=== PATIENT | female | born 1985 ===

== ENCOUNTER 2024-12-10 06:32 | Outpatient (CLI) | payer SELFPAY ==
--- NOTE | 2024-12-10 06:49 | US_ITS ---
WS: [id number] US transvaginal [id number] HISTORY: Follicle number, size, and endo thickness COMPARISON: None available. Uterus: 8.7 cm x 5.1 cm x 4.5 cm. Normal size anteverted uterus. No fibroid or mass. Endometrium: 0.4 cm. Normal endometrium. Right ovary: 2.2 cm x 1.4 cm x 2.6 cm. Normal size ovary. No identifiable follicles. No solid mass. Normal vascularity. Left ovary: 2.6 cm x 1.5 cm x 2.0 cm. Normal size ovary. No identifiable follicles. No solid mass. Normal vascularity. No free fluid in the cul-de-sac. US/US transvaginal [id number] IMPRESSION: 1. No ovarian follicles identified. 2. Endometrium 0.4 cm.
[2024-12-10 09:31] LABS: Estradiol 7.2 pg/mL; HCG Quantitative < 1.00 mIU/mL; Thyroid Stimulating Hormone 1.27 uIU/mL (0.27-4.20)
== END 2024-12-10 06:33 | disposition home or self-care (01) ==
PROVIDERS: Visit Provider Obstetrics & Gynecology Reproductive Endocrinology
DX: N97.8 Female infertility of other origin (principal); Z31.69 Encounter for other general counseling and advice on procreation
CPT/HCPCS: 36415; 76830; 82670; 84443; 84702

== ENCOUNTER 2024-12-18 06:48 | Outpatient (CLI) | payer SELFPAY ==
--- NOTE | 2024-12-18 06:56 | US_ITS ---
WS: [id number] US transvaginal [id number] HISTORY: endo thickness, follicle count COMPARISON: 12/10/2024 Uterus: 10.9 cm x 5.3 cm x 4.2 cm. Normal size anteverted uterus. No fibroid or mass. Endometrium: 1.1 cm. Increasing endometrial thickness since the prior examination. Endometrium is heterogeneous without significant increased vascularity. Small nabothian cyst. Right ovary: 2.7 cm x 1.6 cm x 2.0 cm. Normal size ovary. 2 follicles identified with the largest measuring 0.9 x 1.1 x 0.5 cm. Left ovary: 2.8 cm x 2.0 cm x 2.0 cm. Normal size ovary. There is a dominant follicle measuring 1.3 x 1.5 x 1.2 cm. There are very tiny additional follicles likely. No free fluid in the cul-de-sac. US/US transvaginal [id number] IMPRESSION: 1. Endometrium at 1.1 cm. Increased in thickness since 12/10/2024 from 0.4 cm. 2. Small bilateral ovarian follicles. Largest follicle LEFT ovary. 3. RIGHT ovary; 2 follicles identified. 4. LEFT ovary: 2 follicles identified with the largest measuring 1.3 x 1.5 x 1 .2 cm.
[2024-12-18 08:47] LABS: Estradiol 281.4 pg/mL
== END 2024-12-18 06:49 | disposition home or self-care (01) ==
PROVIDERS: Visit Provider Obstetrics & Gynecology Reproductive Endocrinology
DX: Z97.8 Presence of other specified devices (principal); Z31.69 Encounter for other general counseling and advice on procreation; N88.8 Other specified noninflammatory disorders of cervix uteri
CPT/HCPCS: 36415; 76830; 82670; 84144

== ENCOUNTER 2024-12-19 08:13 | Outpatient (CLI) | payer SELFPAY | END 2024-12-19 08:14 | disposition home or self-care (01) | PROVIDERS: Visit Provider Obstetrics & Gynecology Reproductive Endocrinology | DX: N97.8 Female infertility of other origin (principal); Z31.69 Encounter for other general counseling and advice on procreation | CPT/HCPCS: 36415; 84144 ==

== ENCOUNTER 2025-01-02 06:50 | Outpatient (CLI) | payer SELFPAY | END 2025-01-02 06:51 | disposition home or self-care (01) | PROVIDERS: Visit Provider Obstetrics & Gynecology Reproductive Endocrinology | DX: Z32.01 Encounter for pregnancy test, result positive (principal) | CPT/HCPCS: 36415; 82670; 84144; 84702 ==

== ENCOUNTER 2025-01-09 07:00 | Outpatient (CLI) | payer SELFPAY ==
[2025-01-09 08:01] LABS: Progesterone 39.82 ng/mL
== END 2025-01-09 07:01 | disposition home or self-care (01) ==
LOC: LAB 07:01
PROVIDERS: Visit Provider Obstetrics & Gynecology Reproductive Endocrinology
DX: Z32.01 Encounter for pregnancy test, result positive (principal)
CPT/HCPCS: 36415; 82670; 84144; 84702

== ENCOUNTER 2025-01-22 07:02 | Outpatient (CLI) | payer SELFPAY ==
--- NOTE | 2025-01-22 07:06 | US_ITS ---
WS: [id number] OB ultrasound, 01/22/2025 Clinical Data: dating Comparison: Pelvic ultrasound, 12/08/2024 Findings: There is a single interuterine . heart rate is 161 beats per minute. There is a yolk sac present. The crown-rump length measured 0.9 cm and the gestational sac 1.20 x 2.76 x 3.35 cm. The estimated gestational age 6w6d is with an MYRA of approximately 09/11/2025. The left ovary measured 2.3 cm x 2.0 cm x 1.8 cm with a central cyst measuring 0.4 x 0.9 x 1.1 cm. The right ovary was not imaged. No free fluid in the cul-de-sac.. US/US OB <=14 wk fetus w transvag Impression: 1. Single interuterine . 2. Estimated gestational age of 6w6d with an MYRA of 09/11/2025. 3. heart rate 161 beats per minute.
== END 2025-01-22 07:03 | disposition home or self-care (01) ==
PROVIDERS: Visit Provider Obstetrics & Gynecology Reproductive Endocrinology
DX: O09.811 Supervision of pregnancy resulting from assisted reproductive technology, first trimester (principal); Z3A.01 Less than 8 weeks gestation of pregnancy; N83.292 Other ovarian cyst, left side; N88.8 Other specified noninflammatory disorders of cervix uteri
CPT/HCPCS: 76801; 76817

== ENCOUNTER 2025-09-01 13:30 | Outpatient (CLI) | payer OTHER, SELFPAY ==
[2025-09-01 13:30] VITALS: BMI 36.8
[2025-09-01 13:41] VITALS: BP 130/77; PULSE 95
[2025-09-01 13:56] VITALS: BP 138/70; PULSE 78
[2025-09-01 14:12] VITALS: BP 138/70; PULSE 78; RESP 20; O2SAT 98
[2025-09-01 14:22] LABS: Hematocrit 39.0 % (36-47); Hemoglobin 12.70 g/dL (11.27-16.99); Mean Corpuscular HGB Conc 32.6 g/dL (30-55); Mean Corpuscular Hemoglobin 30.0 pg (27-33); Mean Corpuscular Volume 92.0 fl (85-98); Nucleated Red Blood Cells % 0 %; Platelet Count 186 10^3/cmm (157-399); Red Blood Count 4.24 10^6/uL (3.85-5.65); White Blood Count 13.79 10^3/uL (3.29-11.43)
[2025-09-01 15:14] LABS: Alanine Aminotransferase 7 U/L (0-33); Albumin Level 3.5 g/dL (3.5-5.2); Alkaline Phosphatase 146 U/L (35-105); Anion Gap 18.0 (5-19); Aspartate Amino Transferase 24 U/L (0-32); Blood Urea Nitrogen 8 mg/dL (6-20); Calcium 9.5 mg/dL (8.5-10.5); Carbon Dioxide 22 mmol/L (22-29); Chloride 101 mmol/L (98-107); Globulin 3.0 g/dL (1.3-4.6); Glucose 106 mg/dL (65-115); Lipase 17 U/L (13-60); Osmolality Calculated 283 mOsm/kg (285-295); Potassium 4.0 mmol/L (3.5-5.1); Sodium 137 mmol/L (136-145); Total Protein 6.5 g/dL (6.6-8.7)
== END 2025-09-01 14:12 | disposition home or self-care (01) ==
LOC: OPOB 13:35 → OBGYN 13:36
PROVIDERS: Visit Provider Family Medicine
DX: O26.899 Other specified pregnancy related conditions, unspecified trimester (principal); Z3A.00 Weeks of gestation of pregnancy not specified; R11.10 Vomiting, unspecified; R52 Pain, unspecified
CPT/HCPCS: 36415; 59025; 80053; 83690; 85025; 99211

== ENCOUNTER 2025-09-01 14:14 | Emergency (ER) | payer OTHER, SELFPAY ==
[2025-09-01 14:22] VITALS: BP 123/86; PULSE 99; RESP 18; TEMP 36.4; O2SAT 99
--- NOTE | 2025-09-01 14:38 | W.ED.ABDPA2 ---
HPI - Abdominal Pain General: Chief Complaint: Abdominal Pain Stated Complaint: sent by andreea Time Seen by Provider: 09/01/25 14:18 History of Present Illness: 39-year-old female who is at 38 weeks gestation confirmed by ultrasound. Her usual physician is Dr. Jimenez. She presented to OB with complaints of abdominal pain. No signs of onset of labor she was evaluated by Dr. Jimenez in the OB department and then diverted to the ED because of her continuing abdominal pain concerning for possible acute cholecystitis. Associated Symptoms: Reports nausea and vomiting; Denies chills, dysuria and fever(s) Related Data Allergies Allergy/AdvReac Type Severity Reaction Status Date / Time morphine Allergy Unknown Verified 09/01/25 14:26 Review of Systems Const: Denies: fever(s) or chills Card: Denies: chest pain Resp: Denies: dyspnea GI: Reports: abdominal pain, nausea and vomiting : Denies: dysuria, urinary frequency or urinary urgency Musc: Denies: neck pain or back pain Skin/Breast: Denies: rash Physical Exam Const: GENERAL APPEARANCE: cooperative ORIENTATION/CONSCIOUSNESS: Yes awake, Yes oriented to person, Yes oriented to place and Yes oriented to time HENMT: COMMON NORMALS: normocephalic, atraumatic and hearing grossly normal bilaterally HEAD & SCALP: normocephalic and atraumatic Resp: COMMON NORMALS: normal respiratory effort, No retractions, No use of accessory muscles and clear to auscultation bilaterally AUSCULTATION: clear to auscultation bilaterally Cardio: COMMON NORMALS: regular rate, regular rhythm and No murmurs present (Cardio) RATE: regular rate RHYTHM: regular rhythm GI: COMMON NORMALS: No hepatosplenomegaly present AUSCULTATION: Yes normoactive bowel sounds PALPATION: Yes Tenderness to palpation present (GI) Details: RUQ, No Guarding due to palpation present (GI) and Yes No hepatosplenomegaly present : COMMON NORMALS: Yes no CVA tenderness BLADDER/KIDNEY EXAM: Yes no CVA tenderness Back/Pelvis: COMMON NORMALS: no CVA tenderness Extremity: COMMON NORMALS: normal to inspection, capillary refill normal, no clubbing, cyanosis or edema, no calf tenderness and no pedal edema Neuro: SENSORIUM/ORIENTATION: Yes oriented to person, Yes oriented to place and Yes oriented to time Skin: COMMON NORMALS: no rashes or lesions noted GENERAL SKIN EXAM: no rashes or lesions noted Course Vital Signs: Vital signs: Vital Signs Temperature 97.5 F L 09/01/25 14:22 Pulse Rate 83 09/01/25 20:51 Respiratory Rate 14 09/01/25 20:41 Blood Pressure 140/76 09/01/25 20:51 Pulse Oximetry 97 09/01/25 20:51 Oxygen Delivery Me thod Room Air 09/01/25 20:45 MDM - Abdominal Pain Medical Decision Making Medical decision making Social determinants: None I reviewed the patient's medical record. I reviewed the patient's current home meds. Alternate historians: Reviewed patient's history with her primary OB Dr. Jimenez Differential diagnosis: Acute cholecystitis versus pyelonephritis versus ureteral impingement versus cystitis Lab Review: Labs reviewed white count 13.7 neutrophils 11.2. Alk phos slightly elevated 146 T. bili and transaminases are normal. Urine done in OB reported as normal Imaging:[] Gallbladder ultrasound shows evidence of common bile duct obstruction. Discussed at length with Dr. Stauffer she favors a stone of the distal common bile duct there is numerous stones within the gallbladder there is dilated intrahepatic and extrahepatic ducts. Assessment of risk Level of risk: High Hospitalization considerations: Hospitalization needed for further evaluation and treatment Reexamination: Pain improved with medications given Assessment and plan: Patient has common bile duct obstruction with acute biliary colic. She is already showing dilation of the common bile ducts while there is not significant change in her labs and anticipates she will have this in relatively short order. Patient given Zosyn. Discussed with Dr. Jimenez he concurs with transfer. At this time he had seen the patient in OB department prior to her coming to the emergency room. Obstetrically he felt there was no significant complications. Discussed at length with Dr. Stauffer as well at this point doing an MRCP will not be adequate as patient has significant dilation of ducts and likely will require ERCP regardless. She is beyond 37 weeks with solid dating. Discussed with OB on-call at [facility] they will accept the patient. Reviewed findings with the patient discussed risks she is agreeable to transfer stable at time of transfer Lab Data Labs/Radiology: Radiology Impressions Gallbladder Ultrasound 09/01/25 14:50 IMPRESSION: 1. Cholelithiasis. Numerous stones in the gallbladder. 2. Dilated intrahepatic and extrahepatic ducts. Favor stone in the distal common bile duct. No stone is identified by ultrasound. Recommend MRCP evaluation. All radiology interpretation(s) finalized by discharge Discharge Plan Discharge Patient Disposition: Transfer to ED Clinical Impression: Choledocholithiasis, Term , Cholelithiasis Condition: Stable Patient Instructions: Abdominal Pain (ED) Print Language: Argentine Coding Level of Care Code ED Floor Coverings Installer for [place] Hendrix
--- NOTE | 2025-09-01 14:50 | US_ITS ---
WS: [id number] RIGHT UPPER QUADRANT ULTRASOUND HISTORY: RUQ abd pain COMPARISON: None available. Liver: 14.5 cm in length. Normal size liver. Central bile duct dilatation. Only mildly dilated biliary radicles. Portal Vein: Normal hepatopetal flow with monophasic waveform. Gallbladder: Normally distended gallbladder with numerous stones. No pericholecystic fluid or gallbladder wall thickening. CBD: 1.2 cm Pancreas: Normal size and echogenicity. Right kidney: 13.2 cm in length. Normal size and echogenicity. No hydronephrosis or mass. Aorta and IVC: Unremarkable abdominal aorta and IVC. No ascites. US/US gall bladder [id number] IMPRESSION: 1. Cholelithiasis. Numerous stones in the gallbladder. 2. Dilated intrahepatic and extrahepatic ducts. Favor stone in the distal comm on bile duct. No stone is identified by ultrasound. Recommend MRCP evaluation.
[2025-09-01] MEDS: fentaNYL 50 mcg/mL INJ 2mL 25 MCG IVP (15:18)
[2025-09-01 16:41] VITALS: BP 138/79; PULSE 82; O2SAT 99
[2025-09-01] MEDS: piperacillin-tazobactam 3.375 GM in sodium chloride 0.9% (plus) 50 ML IV (17:01)
[2025-09-01 18:43] VITALS: PULSE 85; O2SAT 100
[2025-09-01 20:41] VITALS: RESP 14
[2025-09-01] MEDS: fentaNYL 50 mcg/mL INJ 2mL IVP (20:41)
[2025-09-01 20:45] VITALS: BP 140/76; PULSE 83; O2SAT 97
[2025-09-01 20:51] VITALS: BP 140/76; PULSE 83; O2SAT 97
== END 2025-09-01 20:53 ==
PROVIDERS: Emergency Provider Family Medicine
DX: O99.613 Diseases of the digestive system complicating pregnancy, third trimester (principal); K80.70 Calculus of gallbladder and bile duct without cholecystitis without obstruction; Z3A.38 38 weeks gestation of pregnancy
CPT/HCPCS: 76705; 96374; 96375; 96376; 99285; J2543; J3010; J7030; J9999